=== PATIENT | female | born 1950 | race Asian ===

== ENCOUNTER → 2016-04-28 | Outpatient (CLI) | payer OTHER ==
[~2016-04-28] MED LIST: ASPCH81X PO; GLC500 PO; HMLI SC; INSDGIPEN SC; INSU100I SC; INSU100I2 SC; INSUINJ4 SQ; LISI-461 PO; LISI2.5T5 PO; MAGN250T16 PO; NITR-5 PO
== END | disposition home or self-care (01) ==
LOC: C.MAMM 15:27
PROVIDERS: ATTEND Family Medicine
DX: M85.80 Other specified disorders of bone density and structure, unspecified site (principal); Z13.820 Encounter for screening for osteoporosis

== ENCOUNTER → 2016-06-23 | Outpatient (CLI) | payer OTHER ==
--- NOTE | 2016-06-24 07:38 | MAMMOGRAPHY REPORT ---
BILATERAL DIGITAL SCREENING MAMMOGRAM TOMOSYNTHESIS WITH CAD: 06/23/2016 CLINICAL HISTORY: Routine screening examination. TECHNIQUE: Breast tomosynthesis in addition to standard 2D mammography was performed. Current study was also evaluated with a Computer Aided Detection (CAD) system. COMPARISON: Comparison is made to exams dated: 06/21/2015 mammogram, 05/22/2014 mammogram, 04/28/2013 ma mmogram, and 04/20/2012 mammogram - [facility]. BREAST COMPOSITION: The tissue of both breasts is extremely dense, which lowers the sensitivity of mammography. FINDINGS: There are a few benign calcifications and scattered punctate microcalcifications throughou t the breasts. Segmental microcalcifications in the medial left breast appear similar on all availa ble prior mammograms dating back to at least 09/12/2008, therefore likely benign. No new suspicious mass, architectural distortion or cluster of microcalcifications is seen. IMPRESSION: ACR BI-RADS CATEGORY 1: NEGATIVE There is no mammographic evidence of malignancy. A 1 year screening mammogram is recommended. The p atient will receive written notification of the results. Approximately 10% of breast cancers are not detected with mammography. A negative mammographic repor t should not delay biopsy if a clinically suggestive mass is present. Delia Beard M.D. ay/:06/23/2016 17:53:31 Patient Registration Clerk: Danette ROBERTSON)(Laura), [facility] letter sent: Normal 1/2 BI-RADS Code: ACR BI-RADS Category 1: Negative
== END | disposition home or self-care (01) ==
LOC: C.MAMM 10:28
PROVIDERS: ATTEND Family Medicine
DX: Z12.31 Encounter for screening mammogram for malignant neoplasm of breast (principal)

== ENCOUNTER 2016-08-15 19:44 | Emergency (ER) | payer OTHER ==
[~2016-08-15] VITALS: Ht 165.1 cm; Wt 50.3 kg
[~2016-08-15 19:44] MED LIST changes: -INSDGIPEN SC; -INSU100I SC; -NITR-5 PO
[2016-08-15 19:54] VITALS: TEMP 36.8; Ht 165.1 cm; Wt 50.3 kg
[2016-08-15] MEDS ORDERED: NITR-5 PO (20:14)
[2016-08-15] MEDS ORDERED: MACROBID 100MG HOME PACK 1 EA VIAL PO ONE (20:15)
[2016-08-15] MEDS ORDERED: INSDGIPEN SC (20:19)
[2016-08-15] MEDS ORDERED: INSU100I SC (20:19)
[2016-08-15 20:25] VITALS: BP 154/79; PULSE 87; O2SAT 98
--- NOTE | 2016-08-15 20:25 | EMERGENCY ROOM VISIT NOTE ---
History First contact with patient: 20:03 Chief Complaint: URINARY SYMPTOMS Stated Complaint: UTI History of Present Illness The patient is a 65 year old female who presents to the Emergency Room with complaints of urinary symptoms for the past 24 hours. She is with her daughter who interprets, and refuses interpretation services. The patient reports that her urine was brown this morning, and is now pink tinged. She reports pressure of the suprapubic region, as well as a mild burning with urination. She denies any fever, chills, back pain, nausea or vomiting. She rates her discomfort a 4 out of 10 on my exam. Review of Systems 10 system review was performed and was negative except for pertinent positives and negatives as indicated in history of present illness Past Medical/Surgical History Medical Problems: (1) Chronic Hepatitis Nos (2) Diab Sary Wo Compl, Type Ii Or Unspec Type, Not Uncntrld (3) Hyperlipidemia Nec/Nos (4) Hypertension Nos Surgical Problems: (1) No history of previous surgery Family History Patient reports no known family medical history. Social History Smoking Status: Never Smoker Alcohol Use: none Marital Status: Housing Status: lives with family Occupation Status: unemployed Current/Historical Medications Scheduled Aspirin (Aspirin Chewable), 81 MG PO DAILY Insulin Glargine (Lantus Solostar), 16 UNITS SC BID Insulin Lispro (Human) (Humalog), 7 UNITS SC TIDM Lisinopril (Lisinopril), 10 MG PO DAILY Metformin HCl (Metformin HCl), 500 MG PO BID Nitrofurantoin Monohyd Macrocr (Macrobid), 100 MG PO BID Allergies Coded Allergies: No Known Allergies (Unverified , 08/15/16) Physical Exam Vital Signs Date Time Temp Pulse Resp B/P Pulse Ox O2 Delivery O2 Flow Rate FiO2 08/15/16 19:54 36.8 83 20 153/75 97 Room Air Physical Exam CONSTITUTIONAL: Healthy and well nourished. Patient does not appear in any acute distress, nor does she appear acutely or toxic. HEENT: Normocephalic, atraumatic. Pupils equal, round and reactive. NECK: Full active range of motion without discomfort. RESPIRATORY: Clear to auscultation bilaterally with no wheezing, crackles, rhonchi or stridor. CARDIOVASCULAR: Regular rate and rhythm with no murmurs, rubs or gallops. GASTROINTESTINAL: Bowel sounds present in all quadrants. Should has mild suprapubic tenderness to palpation. Negative McBurney's point tenderness. Negative CVA tenderness. MUSCULOSKELETAL: Full range of motion of all joints without discomfort. INTEGUMENTARY: No rash or other significant dermatologic conditions noted. NEUROLOGIC: No focal neurologic deficits noted. Medical Decision & Procedures Laboratory Results Urine dip is consistent with infection. Urine cultures are pending. ED Course Patient history and physical exam were performed. Nurse's notes were reviewed. The patient refused any medicine for her urinary discomfort. Urine dip is consistent with infection. Urine cultures were ordered. The patient has no prior history of cystitis or UTI. The patient was provided a home pack and prescription for Macrobid. She was encouraged to follow-up with her family doctor if symptoms are not improving within the next 2-3 days. Return to the emergency department for progressively worsening pain, vomiting, fever or back pain. The patient was happy with plan of care, and voiced understanding of all discharge instructions. Impression Primary Impression: Urinary tract infection Departure Information Dispostion Home / Self-Care Prescriptions Nitrofurantoin Monohyd Macrocr (Macrobid) 100 Mg Cap 100 MG PO BID for 5 Days, #10 CAP Prov: Esequiel Anglin PA 08/15/16 Referrals Bianca Casas M.D. (PCP) Forms HOME CARE DOCUMENTATION FORM, IMPORTANT VISIT INFORMATION Patient Instructions UTI, [facility] Additional Instructions Complete all Macrobid antibiotics as prescribed. Return to the emergency department for progressively worsening pain, fever, vomiting or developing back pain. Problem Qualifiers Primary Impression: Urinary tract infection Urinary tract infection type: acute cystitis Hematuria presence: with hematuria Qualified Codes: N30.01 - Acute cystitis with hematuria
--- NOTE | 2016-08-17 11:34 | Pharmacy Progress Note ---
ED Pharmacist Culture FollowUp Date of Service: August 17, 2016. Patient was seen in the ER on 08/15 and dx with UTI. Urine Cx from that day has finalized and is growing E coli - pansensitive to all abx tested including Macrobid. She had been discharged with Rx for Macrobid 100mg PO BID x 5 days. No action required.
== END 2016-08-15 20:26 | disposition home or self-care (01) ==
LOC: C.EDB 19:45 → C.EDD 20:26
DX: N30.01 Acute cystitis with hematuria (principal); E11.9 Type 2 diabetes mellitus without complications; E78.5 Hyperlipidemia, unspecified; I10 Essential (primary) hypertension; Z79.82 Long term (current) use of aspirin; Z79.4 Long term (current) use of insulin

== ENCOUNTER → 2017-01-25 | Outpatient (CLI) | payer OTHER ==
[~2017-01-25] MED LIST changes: -HMLI SC; +INSDGIPEN SC; +INSU100I SC; -INSU100I2 SC; -INSUINJ4 SQ; -LISI2.5T5 PO; -MAGN250T16 PO
[2017-01-26 06:01] LABS: ESTIMATED AVERAGE GLUCOSE 229 mg/dl; HA1C FLAG Normal (Normal)
== END | disposition home or self-care (01) ==
LOC: C.LAB 18:20
PROVIDERS: ATTEND Family Medicine
DX: R94.5 Abnormal results of liver function studies (principal); E11.9 Type 2 diabetes mellitus without complications